=== PATIENT | male | born 1945 | race Caucasian/White ===

== ENCOUNTER 2022-04-16 16:03 | Outpatient (CLI) | payer MEDICARE, BC, SELFPAY ==
[2022-04-16 11:05] LABS: Albumin* 4.2 g/dL (3.3-5.0); Chloride* 108 mmol/L (96-114); Sodium* 141 mmol/L (135-149)
[2022-04-16 11:06] LABS: Potassium* 4.1 mmol/L (3.6-5.1)
[2022-04-16 11:07] LABS: Cholesterol* 158 mg/dL (90-199)
[2022-04-16 11:08] LABS: Alanine Aminotransferase* 33 U/L (4-50); Alkaline Phosphatase* 102 U/L (40-150); Aspartate Amino Transferase* 38 U/L (12-35); Blood Urea Nitrogen* 18 mg/dL (7-30); Calcium* 9.4 mg/dL (8.4-10.6); Carbon Dioxide* 27 mmol/L (20-32); Creatinine* 0.8 mg/dL (0.5-1.5); Estimated Glomerular Filt Rate 93 ml/min; Glucose* 86 mg/dL (60-115); Triglycerides* 47 mg/dL (40-149)
[2022-04-16 11:09] LABS: HDL Cholesterol* 56 mg/dL (>=40); LDL Cholesterol Calculated 93 mg/dL (<100)
[2022-04-16 11:34] LABS: PSA Screen* 6.85 ng/mL (0.10-4.00)
== END 2022-04-16 16:04 | disposition home or self-care (01) ==
PROVIDERS: PCP Internal Medicine; Visit Provider Internal Medicine
DX: Z00.00 Encounter for general adult medical examination without abnormal findings (principal); E78.5 Hyperlipidemia, unspecified; Z12.5 Encounter for screening for malignant neoplasm of prostate
CPT/HCPCS: 80053; 80061; 84153